=== PATIENT | male | born 1975 | race Caucasian/White ===

== ENCOUNTER 2016-08-31 07:41 | Emergency (ER) | payer OTHER ==
[~2016-08-31] VITALS: Ht 162.6 cm; Wt 62.9 kg
[~2016-08-31 07:41] MED LIST: ALBUTEROL SULF8.5 GM IH; ANAPROX DS550 M1 PO; BACLOFEN10 MG PO; DAILY MULTIPLE1 EACH PO; ECOTRIN325 MG PO; FOLIC ACID1 MG PO; HYDROCODON-ACE1 EAC7 PO; LIBRIUM25 MG PO; MEDROL DOSEPAK4 MG PO; MORPHINE SULFAT15 M1 PO; NAPROSYN500 MG PO; NOHOMEMEDS; OXYCODONE HCL5 MG PO; PERCOCET 5/31 TABLET PO; THIAMINE HCL100 MG PO; TYLENOL REGULA325 MG PO; VALIUM5 MG PO; ZITHROMAX500 MG PO
[2016-08-31 08:35] LABS: HEMATOCRIT 43.7 % (38.0-50.0); MCH 33.3 PG (29.0-34.0); MCHC 35.7 G/DL (30.0-36.0); MCV 93.4 FL (86-99); MEAN PLAT.VOLUME 8.9 uM^3 (9.0-12.4); PLATELET COUNT 272 K/uL (156-360); RBC DIS.WIDTH-CV 11.9 % (11.8-14.6); RBC DIS.WIDTH-SD 41.1 % (39-53); RED BLOOD COUNT 4.68 M/uL (4.00-5.50); WHITE BLOOD COUNT 5.1 K/uL (4.1-10.2)
[2016-08-31 08:45] LABS: CHLORIDE 91 mEq/L (99-109); SODIUM 132 mEq/L (136-147)
[2016-08-31 08:46] LABS: MAGNESIUM 2.3 mg/dL (1.3-2.7)
[2016-08-31 08:48] LABS: GLUCOSE 118 mg/dL (70-99)
[2016-08-31 08:49] LABS: ANION GAP 17 MEQ/L (2-14)
[2016-08-31 08:50] LABS: TOTAL BILIRUBIN 0.3 mg/dL (0.0-1.0)
[2016-08-31 08:51] LABS: ALKALINE PHOSPHATASE 88 IU/L (3-129); SERUM ETHYL ALCOHOL 248 mg/dL
[2016-08-31 08:52] LABS: GFR ESTIMATE (CALCULATED) 35 mL/min/
[2016-08-31 08:53] LABS: UREA NITROGEN (BUN) 17 mg/dL (9-23)
[2016-08-31 08:55] LABS: LIPASE 139 U/L (1.0-51.0)
[2016-08-31 08:57] LABS: TROP-I INTERPRETATION NEGATIVE; TROPONIN-I < 0.01 ng/mL (0.0-0.30)
[2016-08-31 09:14] LABS: ADD MIUA? YES; BILIRUBIN NEGATIVE; BLOOD NEGATIVE; COLOR YELLOW ((YELLOW)); GLUCOSE (STRIP) NEGATIVE; KETONES NEGATIVE; LEUKOCYTES NEGATIVE; NITRITE NEGATIVE; PROTEIN (STRIP) 30; SPECIFIC GRAVITY 1.009 (1.000-1.030); UROBILINOGEN 0.2 MG/DL (0.2-1.0)
[2016-08-31 09:26] LABS: AMPHETAMINE NEGATIVE (500 ng/mL); BACTERIA RARE /HPF; BARBITURATES NEGATIVE (200 ng/mL); BENZODIAZEPINES NEGATIVE (150 ng/mL); COCAINE NEGATIVE (150 ng/mL); EPITHELIAL CELLS RARE /HPF; INTERNAL CONTROLS VALID? YES; METHADONE NEGATIVE (200 ng/mL); METHAMPHETAMINE NEGATIVE (500 ng/mL); MUCUS NONE SEEN /LPF; OPIATES (MORPHINE) NEGATIVE (100 ng/mL); OXYCODONE NEGATIVE (100 ng/mL); PHENCYCLIDINE NEGATIVE (25 ng/mL); PROPOXYPHENE NEGATIVE (300 ng/mL); RED BLOOD CELLS 0-5 /HPF (0-5); THC CANNABINOIDS NEGATIVE (50 ng/mL); TRICYCLIC ANTIDEPRESSANTS NEGATIVE (300 ng/mL); WHITE BLOOD CELLS 0-5 /HPF (0-5)
[2016-08-31 10:34] LABS: TROP-I INTERPRETATION NEGATIVE; TROPONIN-I < 0.01 ng/mL (0.0-0.30)
[2016-08-31] MEDS ORDERED: LIBRIUM25 MG PO (10:56)
[2016-08-31] MEDS ORDERED: ZOFRAN ODT4 MG PO (10:56)
[2016-08-31 12:20] VITALS: BP 111/61
== END 2016-08-31 12:21 | disposition home or self-care (01) ==
LOC: EME → EDBD 07:41 → EME 07:41
PROVIDERS: Nurse Practitioner Family
DX: R07.89 Other chest pain (principal); R11.0 Nausea; F10.129 Alcohol abuse with intoxication, unspecified; I10 Essential (primary) hypertension; F17.200 Nicotine dependence, unspecified, uncomplicated; F19.10 Other psychoactive substance abuse, uncomplicated
CPT/HCPCS: 71020; 80048; 80053; 81003; 83690; 83735; 84484; 85027; 93005; 99281; 99285; G0480; J2405; J7030

== ENCOUNTER 2016-09-27 21:23 | Emergency (ER) | payer OTHER ==
[~2016-09-27] VITALS: Ht 170.2 cm; Wt 63.8 kg
[~2016-09-27 21:23] MED LIST changes: +ZOFRAN ODT4 MG PO
[2016-09-28 05:05] VITALS: BP 128/78
== END 2016-09-28 05:07 | disposition home or self-care (01) ==
LOC: EME 21:23
DX: F10.229 Alcohol dependence with intoxication, unspecified (principal); E86.0 Dehydration; S00.03XA Contusion of scalp, initial encounter; S50.311A Abrasion of right elbow, initial encounter; W18.30XA Fall on same level, unspecified, initial encounter; F17.200 Nicotine dependence, unspecified, uncomplicated
CPT/HCPCS: 99281; 99285

== ENCOUNTER 2016-10-16 01:10 | Emergency (ER) | payer OTHER ==
[~2016-10-16] VITALS: Ht 165.1 cm; Wt 68.1 kg
[2016-10-16 01:33] VITALS: BP 107/74
== END 2016-10-16 05:39 | disposition home or self-care (01) ==
LOC: EME 01:10 → EXP 01:10
DX: F10.129 Alcohol abuse with intoxication, unspecified (principal)
CPT/HCPCS: 99281; 99283

== ENCOUNTER 2016-11-02 23:19 | Emergency (ER) | payer OTHER ==
[~2016-11-02] VITALS: Ht 162.6 cm; Wt 63.0 kg
[2016-11-03 04:46] VITALS: BP 137/86
== END 2016-11-03 04:47 | disposition home or self-care (01) ==
LOC: EME 23:19
DX: F10.129 Alcohol abuse with intoxication, unspecified (principal); S09.8XXA Other specified injuries of head, initial encounter; W19.XXXA Unspecified fall, initial encounter; G89.29 Other chronic pain; M54.5 Low back pain; F17.200 Nicotine dependence, unspecified, uncomplicated
CPT/HCPCS: 70450; 99281; 99284

== ENCOUNTER 2016-12-06 17:21 | Emergency (ER) | payer OTHER ==
[~2016-12-06] VITALS: Ht 162.6 cm; Wt 62.4 kg
[2016-12-06 18:43] LABS: HEMATOCRIT 42.7 % (38.0-50.0); MCH 32.2 PG (29.0-34.0); MCHC 34.7 G/DL (30.0-36.0); PLATELET COUNT 226 K/uL (156-360); RBC DIS.WIDTH-CV 13.4 % (11.8-14.6); RBC DIS.WIDTH-SD 45.1 % (39-53); RED BLOOD COUNT 4.59 M/uL (4.00-5.50); WHITE BLOOD COUNT 6.3 K/uL (4.1-10.2)
[2016-12-06 18:54] LABS: CHLORIDE 108 mEq/L (99-109); POTASSIUM 3.8 mEq/L (3.7-5.4); SODIUM 142 mEq/L (136-147)
[2016-12-06 18:56] LABS: GLUCOSE 99 mg/dL (70-99)
[2016-12-06 18:57] LABS: ANION GAP 11 MEQ/L (2-14); PROTHROMBIN TIME 9.8 (9.2-11.2); PTT 27.1 (25-32)
[2016-12-06 18:59] LABS: SERUM ETHYL ALCOHOL 291 mg/dL
[2016-12-06 19:00] LABS: GFR ESTIMATE (CALCULATED) > 59 mL/min/
[2016-12-06 19:01] LABS: UREA NITROGEN (BUN) 12 mg/dL (9-23)
[2016-12-06 19:06] LABS: TROP-I INTERPRETATION NEGATIVE; TROPONIN-I < 0.01 ng/mL (0.0-0.30)
[2016-12-07 04:31] VITALS: BP 121/70
== END 2016-12-07 04:32 | disposition home or self-care (01) ==
LOC: EME 17:21
PROVIDERS: Emergency Medicine
DX: M94.0 Chondrocostal junction syndrome [Tietze] (principal); F10.129 Alcohol abuse with intoxication, unspecified; Y90.8 Blood alcohol level of 240 mg/100 ml or more; F17.200 Nicotine dependence, unspecified, uncomplicated
CPT/HCPCS: 71020; 80048; 84484; 85027; 85610; 85730; 93005; 99281; 99284; G0480

== ENCOUNTER 2016-12-22 21:08 | Inpatient (IN) | payer OTHER ==
[~2016-12-22] VITALS: Ht 162.6 cm; Wt 65.9 kg
[2016-12-22] MEDS ORDERED: LISINOPRIL20 MG PO (21:21)
[2016-12-22 21:42] LABS: HEMATOCRIT 42.6 % (38.0-50.0); MCH 33.5 PG (29.0-34.0); MCHC 36.6 G/DL (30.0-36.0); MCV 91.4 FL (86-99); MEAN PLAT.VOLUME 8.6 uM^3 (9.0-12.4); RBC DIS.WIDTH-CV 13.8 % (11.8-14.6); RBC DIS.WIDTH-SD 46.7 % (39-53); RED BLOOD COUNT 4.66 M/uL (4.00-5.50); WHITE BLOOD COUNT 6.6 K/uL (4.1-10.2)
[2016-12-22 21:43] LABS: PLATELET COUNT 309 K/uL (156-360)
[2016-12-22 21:52] LABS: CHLORIDE 96 mEq/L (99-109); POTASSIUM 4.5 mEq/L (3.7-5.4); SODIUM 136 mEq/L (136-147)
[2016-12-22 21:53] LABS: GLUCOSE 97 mg/dL (70-99)
[2016-12-22 21:55] LABS: ANION GAP 19 MEQ/L (2-14)
[2016-12-22 21:57] LABS: GFR ESTIMATE (CALCULATED) 20 mL/min/
[2016-12-22 21:58] LABS: UREA NITROGEN (BUN) 62 mg/dL (9-23)
[2016-12-22 22:00] LABS: CREATINE KINASE 85 IU/L (1-294); TOTAL CK 85 IU/L (1-294)
[2016-12-22 22:02] LABS: TROP-I INTERPRETATION NEGATIVE; TROPONIN-I < 0.01 ng/mL (0.0-0.30)
[2016-12-22 22:05] LABS: CK-MB 1.6 ng/mL (0.0-4.9)
[2016-12-22] MEDS ORDERED: PAROXETINE HCL30 MG PO (22:37)
[2016-12-22 23:25] LABS: ADD MIUA? YES; BILIRUBIN NEGATIVE; BLOOD SMALL; COLOR YELLOW ((YELLOW)); GLUCOSE (STRIP) NEGATIVE; KETONES 5; LEUKOCYTES NEGATIVE; NITRITE NEGATIVE; PROTEIN (STRIP) 100; SPECIFIC GRAVITY 1.013 (1.000-1.030); UROBILINOGEN 0.2 MG/DL (0.2-1.0)
[2016-12-22 23:34] LABS: SERUM ETHYL ALCOHOL 214 mg/dL
[2016-12-22 23:42] LABS: BACTERIA NONE SEEN /HPF; EPITHELIAL CELLS RARE /HPF; HYALINE CASTS 30-40 /LPF; MUCUS TRACE /LPF; RED BLOOD CELLS 0-5 /HPF (0-5); UCUL ADDED? NO
[2016-12-23 01:04] LABS: MAGNESIUM 2.1 mg/dL (1.3-2.7)
[2016-12-23 01:07] LABS: TOTAL BILIRUBIN 0.2 mg/dL (0.0-1.0)
[2016-12-23 01:08] LABS: ALKALINE PHOSPHATASE 76 IU/L (3-129)
[2016-12-23 01:10] VITALS: BP 132/82
[2016-12-23 01:11] LABS: DIRECT BILIRUBIN 0.1 mg/dL (0.0-0.3)
[2016-12-23 06:07] LABS: HEMATOCRIT 32.7 % (38.0-50.0); MCH 33.5 PG (29.0-34.0); MCHC 35.8 G/DL (30.0-36.0); MCV 93.7 FL (86-99); MEAN PLAT.VOLUME 9.1 uM^3 (9.0-12.4); PLATELET COUNT 256 K/uL (156-360); RBC DIS.WIDTH-CV 14.3 % (11.8-14.6); RBC DIS.WIDTH-SD 49.1 % (39-53); RED BLOOD COUNT 3.49 M/uL (4.00-5.50); WHITE BLOOD COUNT 5.3 K/uL (4.1-10.2)
[2016-12-23 06:22] LABS: ANION GAP 8 MEQ/L (2-14); CHLORIDE 109 MEQ/L (99-109); GFR ESTIMATE (CALCULATED) 55 mL/min/; GLUCOSE 103 mg/dL (70-99); POTASSIUM 4.2 MEQ/L (3.7-5.4); SAMPLE HEMOLYSIS CHECK 0; SAMPLE ICTERIC CHECK 0; SAMPLE LIPEMIA CHECK 0; SODIUM 141 MEQ/L (136-147); UREA NITROGEN (BUN) 40 mg/dL (9-23)
[2016-12-23 07:50] VITALS: BP 125/67
[2016-12-23 16:04] VITALS: BP 140/78
[2016-12-23 16:57] LABS: ANION GAP 6 MEQ/L (2-14); CHLORIDE 108 MEQ/L (99-109); POTASSIUM 4.3 MEQ/L (3.7-5.4); SAMPLE HEMOLYSIS CHECK 0; SAMPLE ICTERIC CHECK 0; SAMPLE LIPEMIA CHECK 0; SODIUM 139 MEQ/L (136-147)
[2016-12-23 17:02] LABS: GFR ESTIMATE (CALCULATED) > 59 mL/min/; GLUCOSE 108 mg/dL (70-99); UREA NITROGEN (BUN) 23 mg/dL (9-23)
[2016-12-23 22:26] VITALS: BP 136/88
[2016-12-24 06:44] LABS: HEMATOCRIT 35.4 % (38.0-50.0); MCH 34.1 PG (29.0-34.0); MCHC 36.2 G/DL (30.0-36.0); MCV 94.4 FL (86-99); MEAN PLAT.VOLUME 9.4 uM^3 (9.0-12.4); PLATELET COUNT 244 K/uL (156-360); RBC DIS.WIDTH-CV 13.6 % (11.8-14.6); RBC DIS.WIDTH-SD 47.3 % (39-53); RED BLOOD COUNT 3.75 M/uL (4.00-5.50); WHITE BLOOD COUNT 4.6 K/uL (4.1-10.2)
[2016-12-24 07:20] LABS: ANION GAP 5 MEQ/L (2-14); CHLORIDE 105 MEQ/L (99-109); GFR ESTIMATE (CALCULATED) > 59 mL/min/; GLUCOSE 97 mg/dL (70-99); POTASSIUM 3.9 MEQ/L (3.7-5.4); SAMPLE HEMOLYSIS CHECK 0; SAMPLE ICTERIC CHECK 0; SAMPLE LIPEMIA CHECK 0; SODIUM 137 MEQ/L (136-147); UREA NITROGEN (BUN) 12 mg/dL (9-23)
[2016-12-24 07:23] VITALS: BP 125/78
[2016-12-24] MEDS ORDERED: FOLIC ACID1 MG PO (09:46)
[2016-12-24] MEDS ORDERED: THIAMINE HCL100 MG PO (09:46)
== END 2016-12-24 11:52 | disposition home or self-care (01) | DRG 683 ==
LOC: EME → EDBD 21:08 → EME 21:08 → 5EAST 23:58 → EDOF 23:58 → 5EAST 12-23 01:09
PROVIDERS: Emergency Medicine; Hospitalist; Internal Medicine
DX: N17.9 Acute kidney failure, unspecified (principal); F10.229 Alcohol dependence with intoxication, unspecified; Y90.7 Blood alcohol level of 200-239 mg/100 ml; I95.9 Hypotension, unspecified; S91.302A Unspecified open wound, left foot, initial encounter; E86.0 Dehydration; N39.0 Urinary tract infection, site not specified; I10 Essential (primary) hypertension; F12.90 Cannabis use, unspecified, uncomplicated; F17.210 Nicotine dependence, cigarettes, uncomplicated
CPT/HCPCS: 74176; 76770; 80048; 80048 91; 80069; 80076; 81003; 82436; 82550; 82553; 82948; 83735; 83935; 84133; 84300; 84484; 84550; 85027; 87040; 87086; 93005; 99281; 99285; G0480; J0696; J1644; J2405; J7030; J7050

== ENCOUNTER 2017-01-04 00:42 | Emergency (ER) | payer OTHER ==
[~2017-01-04] VITALS: Ht 172.7 cm; Wt 59.0 kg
[~2017-01-04 00:42] MED LIST changes: +LISINOPRIL20 MG PO; +PAROXETINE HCL30 MG PO
[2017-01-04 00:44] VITALS: BP 134/87
== END 2017-01-04 00:50 ==
LOC: EME 00:42
DX: F10.129 Alcohol abuse with intoxication, unspecified (principal); F17.200 Nicotine dependence, unspecified, uncomplicated
CPT/HCPCS: 99281; 99283

== ENCOUNTER 2017-01-09 21:43 | Emergency (ER) | payer OTHER ==
[~2017-01-09] VITALS: Ht 193 cm; Wt 57.9 kg
[2017-01-09 22:26] LABS: HEMATOCRIT 44.6 % (38.0-50.0); MCH 33.1 PG (29.0-34.0); MCHC 35.2 G/DL (30.0-36.0); MCV 94.1 FL (86-99); MEAN PLAT.VOLUME 8.8 uM^3 (9.0-12.4); PLATELET COUNT 251 K/uL (156-360); RBC DIS.WIDTH-CV 15.1 % (11.8-14.6); RBC DIS.WIDTH-SD 52.1 % (39-53); WHITE BLOOD COUNT 6.9 K/uL (4.1-10.2)
[2017-01-09 22:28] LABS: RED BLOOD COUNT 4.74 M/uL (4.00-5.50)
[2017-01-09 22:29] LABS: CHLORIDE 104 mEq/L (99-109); POTASSIUM 3.7 mEq/L (3.7-5.4); SODIUM 142 mEq/L (136-147)
[2017-01-09 22:32] LABS: GLUCOSE 61 mg/dL (70-99)
[2017-01-09 22:33] LABS: ANION GAP 16 MEQ/L (2-14); TOTAL BILIRUBIN 0.4 mg/dL (0.0-1.0)
[2017-01-09 22:34] LABS: SERUM ETHYL ALCOHOL 417 mg/dL
[2017-01-09 22:35] LABS: ALKALINE PHOSPHATASE 111 IU/L (3-129); GFR ESTIMATE (CALCULATED) > 59 mL/min/
[2017-01-09 22:36] LABS: UREA NITROGEN (BUN) 11 mg/dL (9-23)
[2017-01-10 01:37] LABS: POINT-OF-CARE METER ID UU14100415; POINT-OF-CARE USER ID 608261302
[2017-01-10 01:41] LABS: ADD MIUA? NO; BILIRUBIN NEGATIVE; BLOOD NEGATIVE; COLOR YELLOW ((YELLOW)); GLUCOSE (STRIP) NEGATIVE; KETONES 5; LEUKOCYTES NEGATIVE; NITRITE NEGATIVE; PROTEIN (STRIP) NEGATIVE; SPECIFIC GRAVITY 1.008 (1.000-1.030); UCUL ADDED? NO; UROBILINOGEN 0.2 MG/DL (0.2-1.0)
[2017-01-10 02:20] LABS: AMPHETAMINE NEGATIVE (500 ng/mL); BARBITURATES NEGATIVE (200 ng/mL); BENZODIAZEPINES PRESUMPTIVE POSITIVE (150 ng/mL); COCAINE NEGATIVE (150 ng/mL); METHADONE NEGATIVE (200 ng/mL); METHAMPHETAMINE NEGATIVE (500 ng/mL); OPIATES (MORPHINE) NEGATIVE (100 ng/mL); OXYCODONE NEGATIVE (100 ng/mL); PHENCYCLIDINE NEGATIVE (25 ng/mL); PROPOXYPHENE NEGATIVE (300 ng/mL); THC CANNABINOIDS PRESUMPTIVE POSITIVE (50 ng/mL); TRICYCLIC ANTIDEPRESSANTS NEGATIVE (300 ng/mL)
[2017-01-10 02:21] LABS: ADD MEDTOX COMMENT Y; INTERNAL CONTROLS VALID? YES
[2017-01-10 03:07] LABS: POINT-OF-CARE METER ID UU14100415; POINT-OF-CARE USER ID HMLKAV
[2017-01-10 04:40] LABS: BENZODIAZEPINES QUANT VALUE 0 NG/ML; BENZODIAZEPINES, URINE SCREEN Negative (200 ng/mL)
[2017-01-10] MEDS ORDERED: LIBRIUM25 MG PO (14:04)
[2017-01-10 14:34] VITALS: BP 141/88
== END 2017-01-10 14:35 | disposition home or self-care (01) ==
LOC: EME → EDBD 21:43 → EME 21:43
PROVIDERS: Emergency Medicine
DX: F12.10 Cannabis abuse, uncomplicated (principal); F19.10 Other psychoactive substance abuse, uncomplicated; F32.9 Major depressive disorder, single episode, unspecified; F10.129 Alcohol abuse with intoxication, unspecified; Y90.8 Blood alcohol level of 240 mg/100 ml or more; R45.851 Suicidal ideations; F17.200 Nicotine dependence, unspecified, uncomplicated
CPT/HCPCS: 80053; 81003; 82948; 84999; 85027; 90837; 99281; 99285; G0480

== ENCOUNTER 2017-01-18 22:25 | Emergency (ER) | payer OTHER ==
[~2017-01-18] VITALS: Ht 162.6 cm; Wt 65.9 kg
[2017-01-18 22:27] VITALS: BP 128/92
== END 2017-01-18 23:00 | disposition left against medical advice (07) ==
LOC: EME 22:25
DX: F10.99 Alcohol use, unspecified with unspecified alcohol-induced disorder (principal); Z53.21 Procedure and treatment not carried out due to patient leaving prior to being seen by health care provider

== ENCOUNTER 2017-01-19 02:29 | Emergency (ER) | payer OTHER ==
[~2017-01-19] VITALS: Ht 162.6 cm; Wt 54.2 kg
[2017-01-19 02:44] VITALS: BP 136/97
== END 2017-01-19 02:45 ==
LOC: EME 02:29
DX: F10.129 Alcohol abuse with intoxication, unspecified (principal); Z02.89 Encounter for other administrative examinations; F17.200 Nicotine dependence, unspecified, uncomplicated
CPT/HCPCS: 99281; 99283

== ENCOUNTER 2017-01-20 18:34 | Emergency (ER) | payer OTHER ==
[~2017-01-20] VITALS: Ht 162.6 cm; Wt 58.6 kg
[2017-01-20 20:00] LABS: MCH 33.1 PG (29.0-34.0); MCHC 34.9 G/DL (30.0-36.0); MCV 94.9 FL (86-99); MEAN PLAT.VOLUME 8.8 uM^3 (9.0-12.4); PLATELET COUNT 216 K/uL (156-360); RBC DIS.WIDTH-CV 14.6 % (11.8-14.6); RBC DIS.WIDTH-SD 50.8 % (39-53); RED BLOOD COUNT 4.53 M/uL (4.00-5.50); WHITE BLOOD COUNT 4.9 K/uL (4.1-10.2)
[2017-01-20 20:08] LABS: CHLORIDE 103 mEq/L (99-109); POTASSIUM 4.1 mEq/L (3.7-5.4); SODIUM 138 mEq/L (136-147)
[2017-01-20 20:10] LABS: GLUCOSE 83 mg/dL (70-99)
[2017-01-20 20:12] LABS: ANION GAP 12 MEQ/L (2-14)
[2017-01-20 20:14] LABS: GFR ESTIMATE (CALCULATED) > 59 mL/min/
[2017-01-20 20:15] LABS: UREA NITROGEN (BUN) 11 mg/dL (9-23)
[2017-01-20 20:21] LABS: TROP-I INTERPRETATION NEGATIVE; TROPONIN-I < 0.01 ng/mL (0.0-0.30)
[2017-01-20 21:23] VITALS: BP 128/92
== END 2017-01-20 21:23 | disposition home or self-care (01) ==
LOC: EME 18:34
DX: F10.129 Alcohol abuse with intoxication, unspecified (principal); R07.9 Chest pain, unspecified; R06.02 Shortness of breath; F17.200 Nicotine dependence, unspecified, uncomplicated
CPT/HCPCS: 71020; 80048; 84484; 85027; 93005; 99281; 99284

== ENCOUNTER 2017-01-21 00:32 | Emergency (ER) | payer OTHER ==
[~2017-01-21] VITALS: Ht 162.6 cm; Wt 59.5 kg
[2017-01-21 03:36] VITALS: BP 143/96
== END 2017-01-21 03:37 | disposition home or self-care (01) ==
LOC: EME 00:32
DX: F10.10 Alcohol abuse, uncomplicated (principal); K20.9 Esophagitis, unspecified; F17.200 Nicotine dependence, unspecified, uncomplicated
CPT/HCPCS: 99281; 99283

== ENCOUNTER 2017-10-29 13:46 | Emergency (ER) | payer SELFPAY ==
[~2017-10-29] VITALS: Ht 162.6 cm; Wt 150.0 kg
[2017-10-29] MEDS ORDERED: LIBRIUM25 MG PO (15:32)
[2017-10-29 16:13] VITALS: BP 140/103
== END 2017-10-29 16:14 | disposition home or self-care (01) ==
LOC: EME 13:46
DX: F10.129 Alcohol abuse with intoxication, unspecified (principal); F17.200 Nicotine dependence, unspecified, uncomplicated
CPT/HCPCS: 99281; 99284